=== PATIENT | male | born 1985 | race Hispanic/Latino ===

== ENCOUNTER 2018-04-16 11:13 | Emergency (ER) | payer SELFPAY ==
[2018-04-16] MEDS ORDERED: DIPHENHYDRAMINE 25 MG TAB/CAP ONE (12:35)
[2018-04-16] MEDS ORDERED: METHYLPREDNISOLONE 125 MG INJ ONE (12:35)
[2018-04-16] MEDS ORDERED: FAMOTIDINE 20 MG TAB ONE (12:35)
--- NOTE | 2018-04-16 13:05 | ER ---
Nurse's Notes [facility] Name: Nii Woods Age: 32 yrs Sex: Male : 1985 Arrival Date: 04/16/2018 Time: 11:16 Bed 10 Private MD: None, None Diagnosis: Allergic contact dermatitis Presentation: 04/16 11:18 Presenting complaint: Patient states: poison craig exposure that started 3 days ago. sv Transition of care: patient was not received from another setting of care. Onset of symptoms was April 13, 2018. Care prior to arrival: None. 11:18 Method Of Arrival: Ambulatory sv 11:18 Acuity: NEIL 4 sv 11:24 Risk Assessment: Do you want to hurt yourself or someone else? Patient reports no tw2 desire to harm self or others. Initial Sepsis Screen: Does the patient meet any 2 criteria? No. Patient's initial sepsis screen is negative. Does the patient have a suspected source of infection? No. Patient's initial sepsis screen is negative. Triage Assessment: 13:18 General: Behavior is calm, cooperative. kr2 Historical: - Allergies: 11:18 No Known Allergies; sv - PMHx: 11:18 None; sv - PSHx: 11:18 colon; Appendectomy; sv 11:19 Hernia repair; sv - Immunization history:: Adult Immunizations up to date. - Social history:: Smoking status: Patient uses tobacco products, smokes one-half pack cigarettes per day. - Ebola Screening: : No symptoms or risks identified at this time. Screenin:23 Abuse screen: Denies threats or abuse. Nutritional screening: No deficits noted. tw2 Tuberculosis screening: No symptoms or risk factors identified. Fall Risk None identified. Assessment: 11:25 General: Appears in no apparent distress. Pain: Denies pain. Neuro: Level of ss Consciousness is awake, alert, obeys commands. Cardiovascular: Pulses are palpable in right radial artery and left radial artery. Respiratory: Airway is patent Respiratory effort is even, unlabored, Respiratory pattern is regular, symmetrical. GI: Patient currently denies diarrhea, nausea, vomiting. Derm: Rash noted that is itchy, red, raised, vesicular, on right arm and left arm. Musculoskeletal: Circulation, motion, and sensation intact. Range of motion: intact in all extremities, Swelling absent. 13:17 Reassessment: Patient appears in no apparent distress at this time. Patient and/or kr2 family updated on plan of care and expected duration. Pain level reassessed. Patient is alert, oriented x 3, equal unlabored respirations, skin warm/dry/pink. Patient states feeling better. Vital Signs: 11:20 BP 127 / 81; Pulse 72; Resp 18; Temp 98; Pulse Ox 98% ; Weight 78.02 kg; Height 5 ft. sv 11 in. (180.34 cm); 13:17 BP 128 / 86; Pulse 70; Resp 18; Pulse Ox 99% on R/A; kr2 11:20 Body Mass Index 23.99 (78.02 kg, 180.34 cm) sv ED Course: 11:16 Patient arrived in ED. mr 11:18 None, None is Private Physician. mr 11:18 Triage completed. sv 11:19 Arm band placed on right wrist. sv 11:24 Bed in low position. tw2 11:25 Kelsey Rogers RN is Primary Nurse. 11:30 Smair Harden MD is Attending Physician. kdr 13:18 No provider procedures requiring assistance completed. Patient did not have IV access kr2 during this emergency room visit. Administered Medications: 12:47 Drug: Pepcid 20 mg Route: PO; la1 13:17 Follow up: Response: No adverse reaction kr2 12:47 Drug: Benadryl 50 mg Route: PO; la1 13:16 Follow up: Response: No adverse reaction kr2 12:48 Drug: SOLU-Medrol 125 mg Route: IM; Site: right gluteus; la1 13:17 Follow up: Response: No adverse reaction kr2 Outcome: 13:03 Discharge ordered by . kdr 13:18 Discharged to home ambulatory, with family. kr2 13:18 Condition: good 13:18 Discharge instructions given to patient, family, Instructed on discharge instructions, follow up and referral plans. medication usage, Demonstrated understanding of instructions, follow-up care, medications, Prescriptions given X 3. 13:19 Patient left the ED. kr2 Signatures: Christine Hernandez RN MARK ANTHONY Samir Harden MD MD kdr Rivera, Maria mr Kelsey Rogers, MARK ANTHONY HOPSON Faraz Stanton RN RN la1 Delicia Solano RN RN tw2 Cindy Bradley RN RN kr2
--- NOTE | 2018-04-16 13:05 | EDPHYS ---
Physician Documentation [facility] Name: Nii Woods Age: 32 yrs Sex: Male : 1985 Arrival Date: 04/16/2018 Time: 11:16 Bed 10 Private MD: None, None ED Physician Samir Harden HPI: 04/16 15:03 This 32 yrs old Male presents to ER via Ambulatory with complaints of Poison kdr Anh. 15:03 The patient's rash thought to be caused by Dermatitis Contact allergy. The rash is kdr located on the right arm, dorsal aspect of left forearm, left wrist and palmar aspect of left forearm. The rash can be described as crusted, erythematous, macular, papular, vesicular. Onset: The symptoms/episode began/occurred gradually, 3 day(s) ago. Associated signs and symptoms: Pertinent positives: itching, Pertinent negatives:. Severity of symptoms: At their worst the symptoms were mild in the emergency department the symptoms are unchanged. The patient has not experienced similar symptoms in the past. The patient has not recently seen a physician. Historical: - Allergies: 11:18 No Known Allergies; sv - PMHx: 11:18 None; sv - PSHx: 11:18 colon; Appendectomy; sv 11:19 Hernia repair; sv - Immunization history:: Adult Immunizations up to date. - Social history:: Smoking status: Patient uses tobacco products, smokes one-half pack cigarettes per day. - Ebola Screening: : No symptoms or risks identified at this time. ROS: 15:03 Constitutional: Negative for fever, chills, and weight loss, Eyes: Negative for injury, kdr pain, redness, and discharge, Neck: Negative for injury, pain, and swelling, Cardiovascular: Negative for chest pain, palpitations, and edema, Respiratory: Negative for shortness of breath, cough, wheezing, and pleuritic chest pain, Abdomen/GI: Negative for abdominal pain, nausea, vomiting, diarrhea, and constipation. 15:03 Skin: Positive for rash. Exam: 15:03 Constitutional: This is a well developed, well nourished patient who is awake, alert, kdr and in no acute distress. Head/Face: Normocephalic, atraumatic. 15:03 Skin: rash a mild rash is noted, rash can be described as erythematous, macular, papular, raised, vesicular, contact dermatitis. Vital Signs: 11:20 BP 127 / 81; Pulse 72; Resp 18; Temp 98; Pulse Ox 98% ; Weight 78.02 kg; Height 5 ft. sv 11 in. (180.34 cm); 13:17 BP 128 / 86; Pulse 70; Resp 18; Pulse Ox 99% on R/A; kr2 11:20 Body Mass Index 23.99 (78.02 kg, 180.34 cm) sv MDM: 13:03 Patient medically screened. kdr 15:03 Data reviewed: vital signs, nurses notes. Counseling: I had a detailed discussion with kdr the patient and/or guardian regarding: the historical points, exam findings, and any diagnostic results supporting the discharge/admit diagnosis, the need for outpatient follow up. Administered Medications: 12:47 Drug: Pepcid 20 mg Route: PO; la1 13:17 Follow up: Response: No adverse reaction kr2 12:47 Drug: Benadryl 50 mg Route: PO; la1 13:16 Follow up: Response: No adverse reaction kr2 12:48 Drug: SOLU-Medrol 125 mg Route: IM; Site: right gluteus; la1 13:17 Follow up: Response: No adverse reaction kr2 Disposition: 04/16/18 13:03 Discharged to Home. Impression: Allergic contact dermatitis. - Condition is Stable. - Discharge Instructions: Contact Dermatitis, [id number]. - Prescriptions for Benadryl 25 mg Oral Capsule - take 1 capsule by ORAL route every 6 hours As needed Take one or two tablets PO every four to six hours as needed; 30 tablet. Pepcid 20 mg Oral Tablet - take 1 tablet by ORAL route every 12 hours for 10 days; 20 tablet. Prednisone 20 mg Oral Tablet - take 1 tablet by ORAL route once daily As directed elsewhere Take one tabet TID for four days then one tablet BID for four days then 1 tablet QD for four days - Dispense QS; 10 tablet. - Medication Reconciliation Form, Thank You Letter, Antibiotic Education, Prescription Opioid Use form. - Follow up: Private Physician; When: 2 - 3 days; Reason: If symptoms return, Further diagnostic work-up, Recheck today's complaints, Continuance of care, Re-evaluation by your physician. - Problem is new. - Symptoms are unchanged. Signatures: Christine Hernandez, RN RN sv Samir Harden MD MD kdr Faraz Stanton RN RN la1 Cindy Bradley RN RN kr2 Corrections: (The following items were deleted from the chart) 13:19 13:03 04/16/2018 13:03 Discharged to Home. Impression: Allergic contact dermatitis. kr2 Condition is Stable. Forms are Medication Reconciliation Form, Thank You Letter, Antibiotic Education, Prescription Opioid Use. Follow up: Private Physician; When: 2 - 3 days; Reason: If symptoms return, Further diagnostic work-up, Recheck today's complaints, Continuance of care, Re-evaluation by your physician. Problem is new. Symptoms are unchanged. kdr
== END 2018-04-16 13:19 | disposition home or self-care (01) ==
LOC: ER 11:13
DX: L23.7 Allergic contact dermatitis due to plants, except food (principal); F17.210 Nicotine dependence, cigarettes, uncomplicated
CPT/HCPCS: 96372; 99283; J2930